=== PATIENT | male | born 1960 | race Caucasian/White ===

== ENCOUNTER 2021-04-29 06:30 | Observation (INO) | payer OTHER ==
[~2021-04-29] VITALS: Ht 175.3 cm; Wt 103.9 kg
[2021-04-29 07:27] LABS: ABSOLUTE NEUTROPHILS 3.4 thou/uL (1.4-8.2); EOSINOPHILS 1.9 % (0.0-3.0); HEMATOCRIT 45.5 % (42.0-52.0); HEMOGLOBIN 15.2 gm/dL (14.0-18.0); MCHC 33.4 g/dL (28.0-37.0); PLATELET COUNT 205 thou/uL (150-400); POLYS 58.1 % (36.0-66.0); RBC 5.05 mil/uL (4.50-6.00); RDW 13.4 % (10.5-14.5); WBC 5.8 thou/uL (4.0-11.0)
[2021-04-29 07:28] VITALS: BP 129/85
[2021-04-29 07:43] LABS: APTT 24.6 Seconds (24.5-32.8); INR 0.99; PROTIME 10.8 Seconds (10.5-12.1)
[2021-04-29 07:45] LABS: POTASSIUM 3.9 mmol/L (3.5-5.1)
[2021-04-29 07:50] LABS: ALBUMIN 3.7 g/dL (3.4-5.0); TOTAL BILIRUBIN 0.6 mg/dL (0.2-1.0); TOTAL PROTEIN 7.2 g/dL (6.4-8.2)
[2021-04-29] MEDS ORDERED: METFORMIN HCL500 M3 PO (07:52)
[2021-04-29] MEDS ORDERED: LOPRESSOR50 MG PO (07:53)
[2021-04-29] MEDS ORDERED: DILTIAZEM ER180 M2 PO (07:53)
[2021-04-29] MEDS ORDERED: LANOXIN 0.25M0.25 M1 PO (07:54)
[2021-04-29] MEDS ORDERED: ASPIRIN EC81 M1 PO (07:55)
[2021-04-29] MEDS ORDERED: LISINOPRIL5 MG PO (07:55)
[2021-04-29] MEDS ORDERED: LIPITOR20 MG PO (07:56)
[2021-04-29] MEDS ORDERED: XARELTO20 MG PO (07:57)
[2021-04-29] MEDS ORDERED: FISH OIL 1,0001 EAC9 PO (07:57)
[2021-04-29] MEDS ORDERED: TAMBOCOR 100 M100 M1 PO (07:58)
[2021-04-29] MEDS ORDERED: TOUJEO MAX300 UNIT/1 SUBQ (07:59)
[2021-04-29] MEDS ORDERED: TRULICITY0.75 MG/0. SUBQ (08:00)
[2021-04-29] MEDS ORDERED: HUMALOG100 UNIT/1 SUBQ (08:00)
--- NOTE | 2021-04-29 16:22 | NUR ---
RECEIVED REPORT FROM [facility] AT 1530. THIS NURSE WAS TOLD IN REPORT THAT PTS BEDREST WAS COMPLETED. PT AMBULATED TO BED WHEN GOT TO ROOM. PATIENT RESTING IN BED WITH HOB ELEVATED. PT ON ROOM AIR, DENIES SOA, AND COUGH. PT DENIES ANY CHEST PAIN OR PALPITATION. PT GOOD HISTORIAN BUT REPORTS LOW LITERACY LEVEL. PATIENT [id number]. FALL PRECAUTIONS IN PLACE AND CALL LIGHT WITHIN REACH. ASSESSMENTS CHARTED. WILL CONTINUE TO MONITOR.
[2021-04-29 19:27] VITALS: BP 138/94
[2021-04-30 00:30] VITALS: BP 143/94
[2021-04-30 04:39] VITALS: BP 146/91
[2021-04-30 07:30] VITALS: BP 140/87
[2021-04-30 10:14] VITALS: BP 140/87
--- NOTE | 2021-04-30 21:43 | NUR ---
AM PT UP IN BED READY FOR DISCHARGE, A AND O, NO DISCOMFORT, CALL LIGHT IN WITH IN REACH, EATING BREAKFAST. PT DIET CHANGED TO CARB CONTROL PM PT SON AT BEDSIDE FOR HIS RIDE HOME, DISCHARGE INSTRUCTIONS GIVEN, PT VERBALLY UNDERSTOOD INSTRUCTIONS, PT BG WAS GREATER 400, INSULIN GIVEN ORDERED, DR. FRANCIS CALLED INFORMED, ORDERED MORE INSULIN AND STATED TO DISCHARGE PT AND HAVE HIM RECHECK BG IN 2 HOURS, SON AND PT VERBALLY UNDERSTOOD, PT VOICED BACK WHAT THE 2 HOUR TIME WOULD BE. NO QUESTIONS AT THIS TIME.
--- NOTE | 2021-05-14 12:48 | P ---
[facility] [place] [address] PROCEDURE REPORT Name: KIERSTEN NEWBY Room #: 210-P [facility] Juani M.R.#: [id number] Admission: 04/29/21 Attend Phys: Zheng Borjas MD Discharge: 04/30/21 Date of : 56 Report #: [id number] THIS REPORT FOR: cc: Leanne Perez MD, Margaret A. MD Couchonnal, Luis F. MD ~ PREOPERATIVE DIAGNOSIS: Atrial fibrillation and atrial flutter. POSTOPERATIVE DIAGNOSIS: Atrial fibrillation and atrial flutter. PROCEDURES PERFORMED: 1. Atrial fibrillation ablation, CPT code 25937. 2. The 3D mapping, CPT code 60027. 3. Intracardiac echo, CPT code 15077. 4. Focal ablation, CPT code 68541. 5. Second pathway ablation -- CPT code 18745. DESCRIPTION OF PROCEDURE: The patient was brought to the EP laboratory in fasting and sedated state, prepped and draped in a standard fashion. I obtained access to the right femoral vein x 3, placing an 8, 9 and 7-Grenadian short sheath. At baseline, the patient was in atrial fibrillation. Under fluoroscopy, I placed a Decapolar catheter in the coronary sinus and then moved that to the superior vena cava for phrenic nerve pacing. ICE catheter was placed in the right atrium and using intracardiac ultrasound, I verified that there was a left common and 2 right sided pulmonary veins. The patient was systemically heparinized and a transseptal was performed using an SL1 sheath and a [place] needle and this was straightforward. I then exchanged the SL1 sheath for the cryosheath and placed the Lasso catheter in the left atrium and created 3D geometry of the left atrium. Next, I started by performing an AFib ablation. I isolated the left common ostium with two 4-minute freezes. The right superior pulmonary vein underwent a 2-minute second freeze followed by a 3-minute freeze and during the second freeze, the vein isolated at 28 seconds. The right inferior pulmonary vein underwent 4-minute freeze and two 3-minute freezes and then was isolated. The veins were interrogated and found to be isolated. Posterior wall isolation. Next, the patient underwent posterior wall isolation. I performed a total of 6 freezes anchored from the left superior pulmonary vein each of 3 minutes duration. The patient was then cardioverted. A repeat voltage map showed that all veins were isolated except the left common and the posterior wall was now also isolated. As such, I performed 2 additional freezes into the left common ostium, which resulted in isolation. Atrial flutter ablation. The patient was then prepped for atrial flutter ablation. Sheaths were pulled to the right atrium and I used a ramp sheath and an 8 mm ablation catheter to perform atrial flutter ablation. Preablation, the [address] [address] PROCEDURE REPORT Name: KIERSTEN NEWBY Room #: 210-P [facility] Juani MRangelRRangel#: [id number] Admission: 04/29/21 Attend Phys: Zheng Borjas MD Discharge: 04/30/21 Date of : 56 Report #: [id number] transisthmus conduction time was 65 milliseconds. Post-ablation, there was evidence of bidirectional block with a transisthmus conduction time of 210 milliseconds. Post-ablation, the patient was in sinus rhythm. There was no evidence of pericardial effusion and the procedure was concluded. CONCLUSION: 1. Successful atrial fibrillation ablation with isolation of pulmonary veins. 2. Successful posterior wall isolation. 3. Successful ablation of atrial flutter with bidirectional block. <ELECTRONICALLY SIGNED> By: Zheng Borjas MD 05/14/21 1248 [id number] Zheng Borjas MD /nt
== END 2021-04-30 13:01 | disposition home or self-care (01) ==
LOC: CATH 06:30 → 2N 15:48
PROVIDERS: ADMIT Internal Medicine Cardiovascular Disease; ATTEND Internal Medicine Cardiovascular Disease
DX: I48.0 Paroxysmal atrial fibrillation (principal); Z20.822 Contact with and (suspected) exposure to COVID-19; I48.92 Unspecified atrial flutter; E11.9 Type 2 diabetes mellitus without complications; I10 Essential (primary) hypertension; E78.5 Hyperlipidemia, unspecified; Z79.82 Long term (current) use of aspirin; Z79.4 Long term (current) use of insulin; Z79.899 Other long term (current) drug therapy
CPT/HCPCS: 62110; 62900; 65020; 65040; 70005